=== PATIENT | female | born 1970 | race Caucasian/White ===

== ENCOUNTER 2017-11-18 16:40 | Emergency (ER) | payer MEDICAID ==
[2017-11-18] MEDS ORDERED: PROPARACAINE 0.5% 15 ML OPHT DROP ONE (16:47)
[2017-11-18] MEDS ORDERED: FLUORESCEIN SODIUM 1 MG STRIP OP ONE (16:47)
[2017-11-18 16:52] VITALS: BP 162/97
== END 2017-11-18 16:57 | disposition left against medical advice (07) ==
DX: H57.10 Ocular pain, unspecified eye (principal); Z53.21 Procedure and treatment not carried out due to patient leaving prior to being seen by health care provider

== ENCOUNTER 2017-11-18 17:26 | Emergency (ER) | payer OTHER, MEDICAID ==
[2017-11-18] MEDS ORDERED: FLUORESCEIN SODIUM 1 MG STRIP OP ONE (17:34)
--- NOTE | 2017-11-18 18:28 | EDPHY ---
H & P Time Seen by Provider: 11/18/17 17:35 HPI/ROS: CHIEF COMPLAINT: Left eye pain HISTORY OF PRESENT ILLNESS: Patient is a 47-year-old female who wears contacts the thinks she may have gotten something in her left eye. 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 She broke some dishes and may have had water splashed in her eye. She subsequently developed burning under her left contact. She removed her contacts. She rinsed her eyes. She still continued to have burning in her left eye and came the emergency department. She feels as though the patient is opacified slightly in her left eye. REVIEW OF SYSTEMS: 10 systems were reveiwed and are negative with the exception of the elements mentioned in the history of present illness. Past Medical/Surgical History: Noncontributory Smoking Status: Current some day smoker Physical Exam: Vitals noted GENERAL: Well-appearing, in no acute distress, alert. Visual acuity: Noted. Eyelids: Normal inspection, everted for exam. No visible foreign body. Conjunctiva and sclera: Normal inspection. No foreign material. No subconjunctival hemorrhage. No exudate. Not injected. Corneas: Patient is typically on her left cornea. There is also some mild abrasion. No linear lesions. No ulceration. I performed examination with fluorescein dye and slit-lamp. EOMs: Intact. Pupils: PERRL, normal accommodation. Anterior chambers: Normal inspection. No hyphema. No cells or flare. Posterior segments: Normal funduscopic exam Constitutional: Initial Vital Signs Temperature (C) 36.8 C 11/18/17 17:30 Heart Rate 79 11/18/17 17:30 Respiratory Rate 18 11/18/17 17:30 Blood Pressure 139/75 H 11/18/17 17:30 O2 Sat (%) 94 11/18/17 17:30 O2 Delivery Mode Room Air Allergies/Adverse Reactions: ciprofloxacin [From Cipro] Allergy (Verified 11/18/17 17:29) Sulfa (Sulfonamide Antibiotics) Allergy (Verified 11/18/17 17:29) Home Medications: Medication Instructions Recorded Concerta 11/18/17 Propranolol HCl 11/18/17 Tobramycin/Dexamethasone [Tobradex 2.5 ml LEFTEYE Q4 3 Days 11/18/17 Eye Drops] drops.susp Medical Decision Making ED Course/Re-evaluation: In the emergency department proparacaine drops were placed in the patient's left eye. This is immediately improved her symptoms. She tolerated the exam well. Patient had her left eye irrigated with 1 L of normal saline. I discussed the case with Dr. Vital from Ophthalmology. He recommend the patient be placed on TobraDex. He will see the patient in his office if her symptoms continue. I discussed this plan with the patient. I answered all her questions. Was discussing instructions the patient she complained of some mild discomfort in her right eye. I subsequently performed an ocular exam on her right eye. Eyelids: Normal inspection, everted for exam. Conjunctiva and sclera: Normal inspection. No foreign material. No subconjunctival hemorrhage. No exudate. Not injected. Corneas: Normal inspection. Examined with fluorescein dye: No uptake, abrasion, or ulcer. EOMs: Intact. Pupils: PERRL, normal accommodation. Anterior chambers: Normal inspection. No hyphema. No cells or flare. Posterior segments: Normal funduscopic exam I discussed the findings with the patient. The patient was given warnings prior to leaving. I discussed that this could be secondary to abrasion or irritant exposure. I also discussed potential of allergy versus infection. She will return with worsening symptoms. She will follow up closely with Dr. Vital. Differential Diagnosis: My differential includes but is not limited to is foreign body, abrasion, ulceration, keratitis, inflammation Departure - Departure Disposition: Home, Routine, Self-Care Clinical Impression: Corneal abrasion Qualifiers: Encounter type: initial encounter Laterality: left Qualified Code(s): S05.02XA - Injury of conjunctiva and corneal abrasion without foreign body, left eye, initial encounter Condition: Good Instructions: Corneal Abrasion (ED) Additional Instructions: Call the fish bait processing supervisor, Dr. Vital if you have increasing pain or any other concerns. Use your drops as directed by the prescription. Referrals: Elmer Vital MD [Medical Doctor] - 2-3 days, call for appt. Prescriptions: Tobramycin/Dexamethasone [Tobradex Eye Drops] 2.5 ml LEFTEYE Q4 3 Days drops.susp
[2017-11-18] MEDS ORDERED: HYDROCOD/APAP 5/325 PREPACK#6 BTL TAKEHOME ONE (18:38)
[2017-11-18 18:49] VITALS: BP 135/88
[2017-11-18] MEDS ORDERED: TOBRAMYCIN/DEXAMETH 5 ML OPHT.BTL EACHEYE ONE (19:38)
[2017-11-18] MEDS ORDERED: PROPARACAINE 0.5% 15 ML OPHT DROP ONE (19:45)
== END 2017-11-18 18:47 | disposition home or self-care (01) ==
DX: S05.02XA Injury of conjunctiva and corneal abrasion without foreign body, left eye, initial encounter (principal); Z97.3 Presence of spectacles and contact lenses; W20.8XXA Other cause of strike by thrown, projected or falling object, initial encounter; Y93.G1 Activity, food preparation and clean up; Y99.0 Civilian activity done for income or pay; Y92.513 Shop (commercial) as the place of occurrence of the external cause